=== PATIENT | female | born 1990 | race Caucasian/White ===

== ENCOUNTER 2019-09-05 18:41 | Emergency (ER) | payer OTHER ==
[~2019-09-05] VITALS: Ht 172.7 cm; Wt 90.7 kg
[~2019-09-05 18:41] MED LIST: ACCUNEB SO1.25 MG/1; ACTICIN 5% CREA60 G1 TOP; BACTRIM DS TAB1 EACH PO; BENADRYL ALLERG25 MG PO; BENTYL 10 MG CA10 MG; BIRTHCONTROL IMPLANT; BUDEPRION SR100 MG PO; BUPROPION; BUPROPION HCL200 MG PO; CELEXA40 MG; DEPAKOTE125 MG; DOXYCYCLINE 10100 MG PO; FLEXERIL PO; HEADACHE MEDICINE; HYDROCODON-ACE1 EAC7 PO; IBUPROFEN 800800 M1 PO; LATUDA40 MG PO; MACROBID 100 M100 M1 PO; MELATONIN1 MG; MELATONIN1 MG PO; MELATONIN3 MG PO; NAPROSYN500 MG; NAPROSYN500 MG PO; NOHOMEMEDICATIONS; NORCO 5-325 TA1 EACH PO; ONDANSETRON ODT4 MG PO; PREDNISONE 20 M20 M1 PO; PREDNISONE50 MG PO; PRENATAL; PRENATAL PO; PRILOSEC 20 MG20 MG PO; PROAIR HFA8.5 GM IH; PROVENTIL HFA6.7 G1 INH; PYRIDIUM200 MG PO; QUETIAPINE FUMA25 MG PO; SAPHRIS5 MG SL; SEROQUEL; SEROQUEL 100 M100 MG PO; SEROQUEL 25 MG25 M2 PO; SEROQUEL 50 MG50 M2 PO; TRILEPTAL; TRILEPTAL 300300 MG PO; TRINATE TABLET1 TAB; ULTRAM 50MG TAB50 MG PO; VENTOLIN HFA 1818 GM; VENTOLIN HFA 1818 GM INH; WELLBUTRIN SR150 MG PO; ZANTAC 150MG T150 M1 PO; ZOFRAN 4 MG ORAL4 M1 DIS; ZOFRAN4 MG PO; ZPAK PO
[2019-09-05] MEDS ORDERED: ABILIFY MAINTE400 M1 IM (18:52)
[2019-09-05] MEDS ORDERED: PROAIR HFA8.5 GM INH (18:52)
[2019-09-05 19:19] LABS: URINE BILIRUBIN NEGATIVE (Negative); URINE BLOOD 1+ (Negative); URINE CLARITY CLEAR; URINE COLOR YELLOW; URINE GLUCOSE-RANDOM* NEGATIVE (Negative); URINE KETONES NEGATIVE (Negative); URINE LEUKOCYTES-REFLEX NEGATIVE (Negative); URINE NITRITE-REFLEX NEGATIVE (Negative); URINE PROTEIN (DIPSTICK) NEGATIVE (Negative); URINE SPECIFIC GRAVITY 1.025 (1.005-1.035); URINE UROBILINOGEN 0.2 E.U./dl (0.2-1.0)
[2019-09-05 19:36] LABS: ABSOLUTE NEUTROPHILS 6.5 thou/uL (1.4-8.2); BASOPHILS 1.1 % (0.0-2.0); EOSINOPHILS 1.9 % (0.0-3.0); HEMATOCRIT 42.8 % (37.0-47.0); HEMOGLOBIN 14.4 gm/dL (12.0-15.0); LYMPHOCYTES 32.2 % (24.0-44.0); MCH 30.1 pg (26.0-34.0); MCHC 33.7 g/dL (28.0-37.0); MCV 89.1 fL (80.0-100.0); MONOCYTES 6.2 % (1.0-8.0); PLATELET COUNT 277 thou/uL (150-400); POLYS 58.6 % (36.0-66.0); RDW 13.1 % (10.5-14.5)
[2019-09-05 19:39] LABS: BACTERIA-REFLEX 1-9 Few /HPF (None Seen); CASTS None Seen /LPF (None Seen); CRYSTALS None Seen /LPF (None Seen); SQUAMOUS >10 Many /LPF (0-3); URINE RBC 3-10 Few /HPF (0-2); URINE WBC-REFLEX 0-5 Rare /HPF (0-5)
[2019-09-05 19:44] LABS: ANION GAP 11 mmol/L (7-16); BUN 13 mg/dL (7-18); CALCIUM 9.8 mg/dL (8.5-10.1); CHLORIDE 105 mmol/L (98-107); CO2 25 mmol/L (21-32); CREATININE 0.9 mg/dL (0.6-1.0); GLUCOSE 113 mg/dL (74-106); POTASSIUM 3.5 mmol/L (3.5-5.1); SODIUM 141 mmol/L (136-145)
[2019-09-05 19:50] LABS: ALBUMIN 3.8 g/dL (3.4-5.0); DIRECT BILIRUBIN < 0.1 mg/dL (<0.1-0.2); LIPASE 108 U/L (73-393); SGOT 16 U/L (15-37); SGPT 37 U/L (30-65); TOTAL BILIRUBIN 0.6 mg/dL (<0.1-1.0); TOTAL PROTEIN 7.5 g/dL (6.4-8.2)
[2019-09-05] MEDS ORDERED: ZOFRAN ODT4 MG PO (20:40)
[2019-09-05] MEDS ORDERED: IMODIUM A-D2 MG PO (20:40)
[2019-09-05 20:54] VITALS: BP 119/80
== END 2019-09-05 20:13 | disposition home or self-care (01) ==
LOC: ER 18:41
PROVIDERS: Emergency Medicine
DX: R10.9 Unspecified abdominal pain (principal); R11.2 Nausea with vomiting, unspecified; R19.7 Diarrhea, unspecified; J45.909 Unspecified asthma, uncomplicated; Z98.890 Other specified postprocedural states; Z88.1 Allergy status to other antibiotic agents; Z87.891 Personal history of nicotine dependence

== ENCOUNTER 2019-10-22 15:57 | Emergency (ER) | payer OTHER ==
[~2019-10-22] VITALS: Ht 170.2 cm; Wt 91.2 kg
[~2019-10-22 15:57] MED LIST changes: +ABILIFY MAINTE400 M1 IM; +IMODIUM A-D2 MG PO; +PROAIR HFA8.5 GM INH; +ZOFRAN ODT4 MG PO
[2019-10-22] MEDS ORDERED: ZOFRAN ODT4 MG PO (16:58)
[2019-10-22 17:21] VITALS: BP 115/74
== END 2019-10-22 17:27 | disposition home or self-care (01) ==
LOC: ER 15:57
DX: F07.81 Postconcussional syndrome (principal); J45.909 Unspecified asthma, uncomplicated; F17.210 Nicotine dependence, cigarettes, uncomplicated; Z98.890 Other specified postprocedural states; W19.XXXA Unspecified fall, initial encounter; Y93.89 Activity, other specified; Y92.89 Other specified places as the place of occurrence of the external cause; Y99.8 Other external cause status

== ENCOUNTER 2019-11-21 14:37 | Emergency (ER) | payer OTHER ==
[~2019-11-21] VITALS: Ht 165.1 cm; Wt 111.1 kg
[2019-11-21] MEDS ORDERED: TRAZODONE HCL50 MG PO (14:41)
[2019-11-21] MEDS ORDERED: TRAMADOL 50 MG50 MG PO (15:55)
[2019-11-21 16:11] VITALS: BP 131/93
== END 2019-11-21 16:14 | disposition home or self-care (01) ==
LOC: ER 14:37
DX: S60.111A Contusion of right thumb with damage to nail, initial encounter (principal); J45.909 Unspecified asthma, uncomplicated; Z98.890 Other specified postprocedural states; Z98.51 Tubal ligation status; Z87.891 Personal history of nicotine dependence; Z91.040 Latex allergy status; Z88.0 Allergy status to penicillin; Z88.1 Allergy status to other antibiotic agents; W23.0XXA Caught, crushed, jammed, or pinched between moving objects, initial encounter; Y93.89 Activity, other specified; Y92.89 Other specified places as the place of occurrence of the external cause; Y99.8 Other external cause status

== ENCOUNTER 2019-11-24 09:16 | Emergency (ER) | payer OTHER ==
[~2019-11-24] VITALS: Ht 165.1 cm; Wt 111.1 kg
[2019-11-24 09:16] VITALS: BP 137/78
[~2019-11-24 09:16] MED LIST changes: +TRAMADOL 50 MG50 MG PO; +TRAZODONE HCL50 MG PO
== END 2019-11-24 09:50 | disposition home or self-care (01) ==
LOC: ER 09:16
DX: S60.111A Contusion of right thumb with damage to nail, initial encounter (principal); J45.909 Unspecified asthma, uncomplicated; Z98.890 Other specified postprocedural states; Z98.51 Tubal ligation status; Z87.891 Personal history of nicotine dependence; Z91.040 Latex allergy status; Z88.0 Allergy status to penicillin; Z88.1 Allergy status to other antibiotic agents; W23.0XXA Caught, crushed, jammed, or pinched between moving objects, initial encounter; Y93.89 Activity, other specified; Y92.89 Other specified places as the place of occurrence of the external cause; Y99.8 Other external cause status

== ENCOUNTER 2020-01-14 20:43 | Emergency (ER) | payer OTHER ==
[~2020-01-14] VITALS: Ht 165.1 cm; Wt 109.3 kg
[2020-01-14 21:12] LABS: URINE BILIRUBIN NEGATIVE (Negative); URINE BLOOD 3+ (Negative); URINE CLARITY CLEAR; URINE COLOR YELLOW; URINE GLUCOSE-RANDOM* NEGATIVE (Negative); URINE KETONES NEGATIVE (Negative); URINE LEUKOCYTES-REFLEX NEGATIVE (Negative); URINE NITRITE-REFLEX NEGATIVE (Negative); URINE PROTEIN (DIPSTICK) NEGATIVE (Negative); URINE UROBILINOGEN 0.2 E.U./dl (0.2-1.0)
[2020-01-14 21:21] LABS: BACTERIA-REFLEX 1-9 Few /HPF (None Seen); CASTS None Seen /LPF (None Seen); CRYSTALS None Seen /LPF (None Seen); MUCUS 0-3 Light strn/LPF (None Seen); SQUAMOUS 0-3 Few /LPF (0-3); URINE RBC 3-10 Few /HPF (0-2); URINE WBC-REFLEX 0-5 Rare /HPF (0-5)
[2020-01-14 21:23] LABS: AMP/METHAMP Negative (Negative); BARBITURATES Negative (Negative); BENZODIAZEPINES Negative (Negative); COCAINE Negative (Negative); METHADONE Negative (Negative); OPIATES Negative (Negative); PCP Negative (Negative)
[2020-01-14 21:38] LABS: ABSOLUTE NEUTROPHILS 8.5 thou/uL (1.4-8.2); BASOPHILS 0.4 % (0.0-2.0); EOSINOPHILS 1.6 % (0.0-3.0); HEMATOCRIT 41.8 % (37.0-47.0); HEMOGLOBIN 14.3 gm/dL (12.0-15.0); LYMPHOCYTES 27.8 % (24.0-44.0); MCH 30.6 pg (26.0-34.0); MCHC 34.2 g/dL (28.0-37.0); MCV 89.4 fL (80.0-100.0); MONOCYTES 6.5 % (1.0-8.0); PLATELET COUNT 263 thou/uL (150-400); POLYS 63.7 % (36.0-66.0); RBC 4.68 mil/uL (4.20-5.00); RDW 13.4 % (10.5-14.5); WBC 13.3 thou/uL (4.0-11.0)
[2020-01-14 21:45] LABS: CALCIUM 8.8 mg/dL (8.5-10.1); CREATININE 0.9 mg/dL (0.6-1.0); POTASSIUM 3.7 mmol/L (3.5-5.1)
[2020-01-14 21:51] LABS: ALBUMIN 3.5 g/dL (3.4-5.0); TOTAL PROTEIN 6.9 g/dL (6.4-8.2)
[2020-01-14] MEDS ORDERED: TRAMADOL 50 MG50 MG PO (22:59)
[2020-01-14] MEDS ORDERED: NAPROSYN500 MG PO (22:59)
[2020-01-14 23:14] VITALS: BP 123/61
== END 2020-01-14 23:15 | disposition home or self-care (01) ==
LOC: ER 20:43
PROVIDERS: Emergency Medicine
DX: N94.6 Dysmenorrhea, unspecified (principal); M54.5 Low back pain; R10.2 Pelvic and perineal pain; R10.30 Lower abdominal pain, unspecified; J45.909 Unspecified asthma, uncomplicated; Z98.890 Other specified postprocedural states; Z98.51 Tubal ligation status; Z87.891 Personal history of nicotine dependence; Z91.040 Latex allergy status; Z88.0 Allergy status to penicillin; Z88.1 Allergy status to other antibiotic agents

== ENCOUNTER 2020-03-10 16:26 | Emergency (ER) | payer OTHER ==
[~2020-03-10] VITALS: Ht 167.6 cm; Wt 108.9 kg
[2020-03-10 16:34] VITALS: BP 132/76
[2020-03-10] MEDS ORDERED: ABILIFY MAINTE300 MG IM (16:35)
== END 2020-03-10 17:35 | disposition home or self-care (01) ==
LOC: ER 16:26
DX: R26.2 Difficulty in walking, not elsewhere classified (principal); T63.461A Toxic effect of venom of wasps, accidental (unintentional), initial encounter; J45.909 Unspecified asthma, uncomplicated; Z87.891 Personal history of nicotine dependence; Z79.899 Other long term (current) drug therapy; Z88.0 Allergy status to penicillin; Z88.1 Allergy status to other antibiotic agents; Z91.040 Latex allergy status; Z88.8 Allergy status to other drugs, medicaments and biological substances; Y92.89 Other specified places as the place of occurrence of the external cause

== ENCOUNTER 2021-03-21 12:52 | Emergency (ER) | payer OTHER ==
[~2021-03-21] VITALS: Ht 167.6 cm; Wt 108.9 kg
[2021-03-21 12:52] VITALS: BP 129/85
[~2021-03-21 12:52] MED LIST changes: +ABILIFY MAINTE300 MG IM
[2021-03-21] MEDS ORDERED: CLEOCIN HCL300 MG PO (13:07)
== END 2021-03-21 13:15 | disposition home or self-care (01) ==
LOC: ER 12:52
DX: L73.2 Hidradenitis suppurativa (principal); J45.909 Unspecified asthma, uncomplicated; Z98.51 Tubal ligation status; Z79.899 Other long term (current) drug therapy; Z87.891 Personal history of nicotine dependence; Z88.0 Allergy status to penicillin; Z88.1 Allergy status to other antibiotic agents; Z91.040 Latex allergy status

== ENCOUNTER 2021-05-08 10:46 | Emergency (ER) | payer OTHER ==
[~2021-05-08] VITALS: Ht 167.6 cm; Wt 108.9 kg
[~2021-05-08 10:46] MED LIST changes: +CLEOCIN HCL300 MG PO
[2021-05-08 10:54] VITALS: BP 130/79
[2021-05-08 12:12] LABS: URINE BILIRUBIN NEGATIVE (Negative); URINE BLOOD 1+ (Negative); URINE CLARITY CLEAR; URINE COLOR YELLOW; URINE GLUCOSE-RANDOM* NEGATIVE (Negative); URINE KETONES NEGATIVE (Negative); URINE LEUKOCYTES-REFLEX NEGATIVE (Negative); URINE NITRITE-REFLEX NEGATIVE (Negative); URINE PROTEIN (DIPSTICK) NEGATIVE (Negative); URINE SPECIFIC GRAVITY 1.015 (1.005-1.035); URINE UROBILINOGEN 0.2 E.U./dl (0.2-1.0)
[2021-05-08 12:31] LABS: BACTERIA-REFLEX 1-9 Few /HPF (None Seen); CASTS None Seen /LPF (None Seen); CRYSTALS None Seen /LPF (None Seen); SQUAMOUS 4-10 Moderate /LPF (0-3); URINE RBC 1-2 Rare /HPF (NONE SEEN); URINE WBC-REFLEX 0-5 Rare /HPF (0-5)
--- NOTE | 2021-05-09 11:58 | EKG ---
[address] [employer] [place] [address] ELECTROCARDIOGRAM REPORT Name: ZORAIDA ROSADO [id number] Admission: 05/08/21 Attend Phys: Discharge: 05/08/21 Date of : [birth year] Report #: [id number] [facility] ED Test Date: 2021-05-08 Test Time: 10:58:29 Pat Name: ZORAIDA ROSADO Department: Room: Gender: F [employer] Sample: : 1990 Requested By: Ian Salazar Order Number: [id number] MD: Jeef Sharma Measurements Intervals [place] Rate: 89 P: 54 [place]: 160 QRS: 7 QRSD: 89 T: 4 QT: 368 QTc: 448 Interpretive Statements Sinus rhythm Nonspecific T wave abnormalities Compared to ECG 01/10/2013 18:57:12 T-wave abnormality now present Electronically Signed On 05-09-2021 11:58:15 CDT by Jefe Sharma [email or web address] <ELECTRONICALLY SIGNED> By: Jefe Sharma MD 05/09/21 1158 1058 1058 Jefe Sharma MD /SEDA
== END 2021-05-08 12:48 | disposition home or self-care (01) ==
LOC: ER 10:46
PROVIDERS: Student in an Organized Health Care Education/Training Program
DX: F41.9 Anxiety disorder, unspecified (principal); Z20.822 Contact with and (suspected) exposure to COVID-19; R05 Cough; J45.909 Unspecified asthma, uncomplicated; Z98.51 Tubal ligation status; Z87.891 Personal history of nicotine dependence; Z88.5 Allergy status to narcotic agent; Z88.0 Allergy status to penicillin; Z91.02 Food additives allergy status; Z91.040 Latex allergy status

== ENCOUNTER 2021-07-26 18:13 | Emergency (ER) | payer OTHER ==
[2021-07-26 18:45] VITALS: BP 142/85
== END 2021-07-26 19:03 | disposition left against medical advice (07) ==
LOC: ER 18:13
DX: L02.411 Cutaneous abscess of right axilla (principal); J45.909 Unspecified asthma, uncomplicated; Z53.21 Procedure and treatment not carried out due to patient leaving prior to being seen by health care provider; Z98.890 Other specified postprocedural states; Z98.51 Tubal ligation status; Z91.09 Other allergy status, other than to drugs and biological substances; Z88.1 Allergy status to other antibiotic agents; Z88.0 Allergy status to penicillin; Z91.040 Latex allergy status